=== PATIENT | female | born 1950 | race Caucasian/White ===

== ENCOUNTER 2016-07-24 18:33 | Emergency (ER) | payer OTHER, MEDICAID | END 2016-07-24 22:16 | disposition home or self-care (01) | LOC: ER 18:33 | DX: R06.09 Other forms of dyspnea (principal); I10 Essential (primary) hypertension; Z79.899 Other long term (current) drug therapy; Z79.82 Long term (current) use of aspirin; Z87.891 Personal history of nicotine dependence | CPT/HCPCS: 71010; 93005 ==